=== PATIENT | female | born 1945 | race Caucasian/White ===

== ENCOUNTER 2017-05-09 12:19 | Emergency (ER) | payer OTHER ==
[~2017-05-09] VITALS: Ht 152.4 cm; Wt 70.0 kg
[~2017-05-09 12:19] MED LIST: ALBU1AER INH; ALBU2.5I NEB; AMIT8CAP6 PO; ASPI1TAB7 PO; BUPR-86 PO; DOCU1CAP39 PO; REST0.05 EACH EYE; REST30CA PO; ROSU10 PO
[2017-05-09 12:25] VITALS: BP 151/69; PULSE 60; RESP 17; TEMP 97.6; O2SAT 95
[2017-05-09] MEDS ORDERED: ROSU1TAB8 PO (12:57)
[2017-05-09] MEDS ORDERED: MIRT30TA PO (12:57)
[2017-05-09] MEDS ORDERED: ASPI1TAB73 PO (12:57)
[2017-05-09] MEDS ORDERED: OMEP20TA PO (12:57)
[2017-05-09] MEDS ORDERED: TRAV0.00 LEFT EYE (12:57)
[2017-05-09] MEDS ORDERED: CITA20TA4 PO (12:57)
[2017-05-09] MEDS ORDERED: OMEGCAP PO (12:57)
[2017-05-09] MEDS ORDERED: TRAM50TA PO (12:57)
[2017-05-09] MEDS ORDERED: OLAN20TA PO (12:57)
[2017-05-09] MEDS ORDERED: LINA145C PO (12:57)
[2017-05-09] MEDS ORDERED: DONE10TA7 PO (12:57)
[2017-05-09] MEDS ORDERED: BUPR150CR PO (12:57)
[2017-05-09] MEDS ORDERED: ACETAMINOPHEN 500 MG CPLT PO ONE (13:00)
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
== END 2017-05-09 15:01 | disposition home or self-care (01) ==
LOC: NEPD 12:19
DX: S40.021A Contusion of right upper arm, initial encounter (principal); V49.50XA Passenger injured in collision with unspecified motor vehicles in traffic accident, initial encounter
CPT/HCPCS: 72125; 73030; 73060; 99285